=== PATIENT | female | born 1995 | race American Indian/Alaskan Native ===

== ENCOUNTER 2017-05-16 15:58 | Emergency (ER) | payer SELFPAY ==
[2017-05-16 17:55] VITALS: BP 132/83
== END 2017-05-17 04:20 | disposition left against medical advice (07) ==
LOC: ED 15:58
DX: Z53.21 Procedure and treatment not carried out due to patient leaving prior to being seen by health care provider (principal)

== ENCOUNTER 2019-12-31 05:21 | Emergency (ER) | payer SELFPAY ==
[2019-12-31 05:42] VITALS: BP 106/78
[2019-12-31] MEDS ORDERED: LIDOCAINE (2%) 20 MG/1 ML VIAL 20 ML MDV INFILTRATI ONE ×2 (06:38→06:47)
--- NOTE | 2019-12-31 06:49 | Emergency Department Report ---
ED General Adult HPI - General Chief complaint: Extremity Injury, Upper Stated complaint: INJURY TO RIGHT MIDDLE FINGER Time Seen by Provider: 12/31/19 06:36 Source: patient Mode of arrival: Ambulatory Limitations: No Limitations - History of Present Illness Initial comments: [id number] -[place] female presents emergency department after acci dental slip and fall and striking her right middle finger CAUSING HER ACRYLIC FINGER NAIL TO LIFT OFF OF THE NAIL BED RESULTING IN A THROBBING PAIN WITH SCANT BLEEDING. -: Sudden Location: upper extremity Radiation: non-radiation Severity scale (0 -10): 10 Consistency: constant Improves with: none Worsens with: movement - Related Data Allergies Allergy/AdvReac Type Severity Reaction Status Date / Time No Known Allergies Allergy Verified 05/16/17 17:53 ED Review of Systems ROS: Stated complaint: INJURY TO RIGHT MIDDLE FINGER Other details as noted in HPI Comment: All other systems reviewed and negative ED Past Medical Hx - Past Medical History Previous Medical History?: No - Surgical History Past Surgical History?: No Additional Surgical History: wisdom teeth - Social History Smoking Status: Never Smoker Substance Use Type: Marijuana ED Physical Exam - General Limitations: No Limitations - Expanded Upper Extremity Exam Right Hand Wrist exam: Present: tenderness Hand L/R Back: 1 - Partially avulsed fingernail at the matrix level. No laceration ED Course Vital Signs 12/31/19 05:37 Temperature 98 F Pulse Rate 72 Respiratory 18 Rate Blood Pressure 106/78 O2 Sat by Pulse 100 Oximetry - Procedure Description Procedures done: AREA WAS PREP AND DRAPED IN ASEPTIC FASHION. ANSTEHESIA WITH 2% LIDOCAINE WITHOUT EPI. fingernail was returned to the matrix and taped down with a finger splint and [place] Critical care attestation.: If time is entered above; I have spent that time in minutes in the direct care of this critically ill patient, excluding procedure time. ED Disposition Clinical Impression: Fingernail avulsion, partial Disposition: DC-01 TO HOME OR SELFCARE Is pt being admited?: No Does the pt Need Aspirin: No Condition: Stable Instructions: Toenail/Fingernail Removal (ED) Additional Instructions: PLEASE DO NOT REMOVE YOUR FINGERNAIL ALLOW IT TO GROW OR SPONTANEOUSLY SEPARATE FROM THE MATIRX Referrals: PRIMARY CARE, [Primary Care Provider] - 3-5 Days
== END 2019-12-31 07:11 | disposition home or self-care (01) ==
LOC: ED 05:21
DX: S61.300A Unspecified open wound of right index finger with damage to nail, initial encounter (principal); X58.XXXA Exposure to other specified factors, initial encounter; Y93.89 Activity, other specified; Y92.89 Other specified places as the place of occurrence of the external cause; Y99.8 Other external cause status
CPT/HCPCS: 99282

== ENCOUNTER 2020-06-24 18:45 | Emergency (ER) | payer SELFPAY ==
[2020-06-24 19:27] VITALS: BP 112/69
[2020-06-24] MEDS ORDERED: FAMOTIDINE 20 MG TAB PO ONE (19:31)
[2020-06-24] MEDS ORDERED: ACETAMINOPHEN 500 MG TAB PO ONE (19:31)
[2020-06-24] MEDS ORDERED: ONDANSETRON 4 MG ODT TAB PO ONE (19:31)
--- NOTE | 2020-06-24 19:36 | Emergency Department Report ---
ED N/V/D HPI - General Chief complaint: Nausea/Vomiting/Diarrhea Stated complaint: HEAD PAIN/VOMITING Source: patient Mode of arrival: Ambulatory Limitations: No Limitations - History of Present Illness Initial comments: Patient is a nulliparous 24-year-old -[place] female with no past medical history presents to the ED with complaint of acute onset persistent nausea and vomiting, diarrhea and mild diffuse abdominal pain for the last 12 hours. Patient states that the last meal she ate was about 24 hours ago at a restaurant and that it consisted of seafood. Patient states that she has not been able to keep anything down especially in the last 12 hours and that she has had multiple nausea and vomiting episode with diarrhea. Patient denies fever, chills, dizziness, syncope, chest pain, shortness of breath, dysuria, urinary frequency and urgency, vaginal bleeding, vaginal discharge, sore throat, headache or cough. MD complaint: nausea, vomiting, diarrhea -: Sudden, hour(s) (12) Description of Vomiting: food contents, watery, bilious Description of Diarrhea: water Associated Abdominal Pain: Yes (mild suprapubic cramps) Location: diffuse Radiation: none Severity: mild Pain Scale: 2 Quality: cramping, aching, dull Consistency: intermittent Improves with: none Worsens with: eating, vomiting Context: other (possibly ) Associated Symptoms: denies other symptoms, loss of appetite, malaise, nausea/vomiting. denies: myalgias, chest pain, cough, diaphoresis, fever/chills, headaches, rash, dysuria, shortness of breath, syncope, weakness, other - Related Data Previous Rx's Medication Instructions Recorded Last Taken Type Dicyclomine [Bentyl] 20 mg PO Q6H PRN #20 tablet 06/24/20 Unknown Rx Famotidine [Pepcid] 20 mg PO BID #30 tablet 06/24/20 Unknown Rx Ondansetron [Zofran Odt] 4 mg PO Q6HR PRN #20 tab.rapdis 06/24/20 Unknown Rx Allergies Allergy/AdvReac Type Severity Reaction Status Date / Time No Known Allergies Allergy Verified 05/16/17 17:53 ED Review of Systems ROS: Stated complaint: HEAD PAIN/VOMITING Other details as noted in HPI Constitutional: denies: chills, fever Eyes: denies: eye pain, eye discharge, vision change ENT: denies: ear pain, throat pain Respiratory: denies: cough, shortness of breath, wheezing Cardiovascular: denies: chest pain, palpitations Endocrine: no symptoms reported Gastrointestinal: nausea, vomiting, diarrhea. denies: abdominal pain Genitourinary: denies: urgency, dysuria, discharge Musculoskeletal: denies: back pain, joint swelling, arthralgia Skin: denies: rash, lesions Neurological: denies: headache, weakness, paresthesias Psychiatric: denies: anxiety, depression Hematological/Lymphatic: denies: easy bleeding, easy bruising ED Past Medical Hx - Surgical History Additional Surgical History: wisdom teeth - Social History Smoking Status: Never Smoker Substance Use Type: Marijuana - Medications Home Medications: Home Medications Medication Instructions Recorded Confirmed Last Taken Type Dicyclomine [Bentyl] 20 mg PO Q6H PRN #20 tablet 06/24/20 Unknown Rx Famotidine [Pepcid] 20 mg PO BID #30 tablet 06/24/20 Unknown Rx Ondansetron [Zofran Odt] 4 mg PO Q6HR PRN #20 tab.rapdis 06/24/20 Unknown Rx ED Physical Exam - General Limitations: No Limitations General appearance: alert, in no apparent distress - Head Head exam: Present: atraumatic, normocephalic, normal inspection - Eye Eye exam: Present: normal appearance, PERRL, EOMI Pupils: Present: normal accommodation - ENT ENT exam: Present: normal exam, normal orophraynx, mucous membranes moist, TM's normal bilaterally, normal external ear exam - Neck Neck exam: Present: normal inspection, full ROM - Respiratory Respiratory exam: Present: normal lung sounds bilaterally. Absent: respiratory distress, wheezes, rales, stridor, chest wall tenderness, decreased breath sounds, prolonged expiratory - Cardiovascular Cardiovascular Exam: Present: regular rate, normal rhythm, normal heart sounds. Absent: systolic murmur, diastolic murmur, rubs, gallop - GI/Abdominal GI/Abdominal exam: Present: soft, normal bowel sounds. Absent: tenderness, guarding, rebound, hyperactive bowel sounds, hypoactive bowel sounds - Extremities Exam Extremities exam: Present: normal inspection, full ROM, normal capillary refill - Back Exam Back exam: Present: normal inspection, full ROM. Absent: tenderness, CVA tenderness (R), CVA tenderness (L), muscle spasm, paraspinal tenderness, vertebral tenderness - Neurological Exam Neurological exam: Present: alert, oriented X3, CN II-XII intact, normal gait, reflexes normal - Psychiatric Psychiatric exam: Present: normal affect, normal mood - Skin Skin exam: Present: warm, dry, intact, normal color. Absent: rash ED Course Vital Signs 06/24/20 19:22 Temperature 97.8 F Pulse Rate 63 Respiratory 18 Rate Blood Pressure 112/69 [Right] O2 Sat by Pulse 100 Oximetry ED Medical Decision Making - Lab Data Result diagrams: 06/24/20 19:37 06/24/20 19:37 - Medical Decision Making This is a nulliparous 24-year-old -[place] female with no past medical history presents to the ED with complaint of acute onset persistent nausea and vomiting, diarrhea and mild diffuse abdominal pain for the last 12 hours. Patient states that the last meal she ate was about 24 hours ago at a restaurant and that it consisted of seafood. Patient states that she has not been able to keep anything down especially in the last 12 hours and that she has had multiple nausea and vomiting episode with diarrhea. In the ED, patient is alert and oriented x3 and is not in distress. Lab test results were reviewed and are all nonactionable. Patient was treated for nausea and vomiting in the ED and also given antacids. On reevaluation, patient has not had any nausea or vomiting while in the ED and passed oral fluid challenge in the ED. Patient s ymptoms are likely due to viral gastroenteritis causing the symptoms form food poisoning. Patient was therefore discharged home on antiemetics, antacids and pain medications and was advised to maintain a clear liquid diet for 1224 hrs. while taking medications, drink plenty of fluids and follow-up with her primary care physician in 5 to 7 days for reevaluation. Patient was also advised to return to the ED immediately if symptoms get worse. - Differential Diagnosis Viral gastroenteritis, dehydration, UTI, GERD, gastritis Critical care attestation.: If time is entered above; I have spent that time in minutes in the direct care of this critically ill patient, excluding procedure time. ED Disposition Clinical Impression: Nausea, vomiting and diarrhea, Viral gastroenteritis Disposition: DC-01 TO HOME OR SELFCARE Is pt being admited?: No Does the pt Need Aspirin: No Condition: Stable Instructions: Viral Gastroenteritis, Adult, [id number], Nausea and Vomiting, Adult, [id number] Additional Instructions: All lab test results were reviewed and are all nonactionable. Symptoms are likely due to a viral gastroenteritis from food poisoning. Therefore maintain a clear liquid diet for 12 to 24 hours, drink plenty of fluids, take medications as advised and follow-up with your primary care physician in 5 to 7 days for reevaluation. Return to the ED immediately if symptoms get worse. Prescriptions: Dicyclomine [Bentyl] 20 mg PO Q6H PRN #20 tablet PRN Reason: abdominal pain Famotidine [Pepcid] 20 mg PO BID #30 tablet Ondansetron [Zofran Odt] 4 mg PO Q6HR PRN #20 tab.rapdis PRN Reason: Nausea Referrals: PRIMARY CARE, [Primary Care Provider] - 3-5 Days [facility] [Provider Group] - 3-5 Days Time of Disposition: 22:58 Print Language: MONGOLIAN
[2020-06-24 19:46] LABS: Basophils % (Auto) 0.5 % (0.0-1.8); Eosinophils # (Auto) 0.1 K/mm3 (0.0-0.4); Hematocrit 40.2 % (30.3-42.9); Hemoglobin 13.2 gm/dl (10.1-14.3); Lymphocytes # (Auto) 1.5 K/mm3 (1.2-5.4); Lymphocytes % (Auto) 25.7 % (13.4-35.0); Mean Corpuscular HGB Conc 33 % (30-34); Mean Corpuscular Volume 90 fl (79-97); Monocytes # (Auto) 0.3 K/mm3 (0.0-0.8); Monocytes % (Auto) 5.5 % (0.0-7.3); Platelet Count 232 K/mm3 (140-440); Red Blood Count 4.47 M/mm3 (3.65-5.03); Red Cell Distribution Width 13.9 % (13.2-15.2)
[2020-06-24 20:13] LABS: Alanine Aminotransferase 13 units/L (7-56); Albumin 4.3 g/dL (3.9-5); Blood Urea Nitrogen 9 mg/dL (7-17); Calcium 8.9 mg/dL (8.4-10.2); Hemolysis Index 2
[2020-06-24 20:16] LABS: BUN/Creatinine Ratio 13
[2020-06-24 22:43] LABS: Bilirubin,Urine NEG (Negative); Blood,Urine NEG (Negative); Color,Urine Yellow (Yellow); Mucus,Urine FEW /HPF; Protein,Urine <15 mg/dL mg/dL (Negative); Urobilinogen,Urine < 2.0 mg/dL (<2.0); WBC,Urine < 1.0 /HPF (0.0-6.0)
[2020-06-24 22:54] LABS: HCG Qualitative,Urine Negative (Negative)
== END 2020-06-24 23:06 | disposition home or self-care (01) ==
LOC: ED 18:45
DX: A08.4 Viral intestinal infection, unspecified (principal); F12.10 Cannabis abuse, uncomplicated; Z79.899 Other long term (current) drug therapy
CPT/HCPCS: 36415; 80053; 81001; 81025; 85025; 99283